=== PATIENT | female | born 1995 | race Caucasian/White ===

== ENCOUNTER 2023-02-22 11:09 | Observation (INO) ==
--- NOTE | 2023-02-22 11:41 | ED Triage Note ---
Date of Service February 22, 2023 History of Present Illness This patient was briefly evaluated while in triage. An abbreviated physical exam was performed. This patient is a 28-year-old Female who presents to the ED for evaluation of fluttering in the chest since 1 AM. The patient reports that when she stood up, she got lightheaded. She went to her PCPs office this morning, and had an ECG showing atrial fibrillation. Patient does report some pain in the back of her right calf. PCP is Dr. Webster Physical Exam CONSTITUTIONAL: Healthy and well nourished. Patient does not appear in any acute distress. HEENT: No sclericterus or conjunctival injection NECK: Full active range of motion without discomfort. No JVD or carotid bruits RESPIRATORY: Clear to auscultation bilaterally with no wheezing, crackles, rhonchi or stridor. CARDIOVASCULAR: Irregular rhythm with no murmurs, rubs or gallops. GASTROINTESTINAL: Bowel sounds present in all quadrants. INTEGUMENTARY: No rash or other significant dermatologic conditions noted. HEMATOLOGIC: No ecchymosis or petechiae. PSYCHIATRIC: Positive affect. NEUROLOGIC: No focal neurologic deficits noted. Initial orders for labs and / or imaging were placed and patient was placed in the waiting area until a bed is available. Please see further documentation for the full ED course.
[2023-02-22] MEDS ORDERED: SODIUM CHLORIDE 0.9% 1000ML 1,000 ML IV STA (11:42)
--- NOTE | 2023-02-22 12:57 | XRay Report ---
XR chest 1V not portable CLINICAL HISTORY: Chest pain, nonspecific TECHNIQUE: Single frontal radiograph of the chest was obtained. Comparison: None available at the time of this dictation. FINDINGS: No lines and tubes are seen. The cardiomediastinal silhouette is normal. The lungs are clear. No evid ence of pleural effusion or pneumothorax. IMPRESSION: No acute chest disease. ACT 112: Negative or not required by law. Electronically signed by: Roland Milian M.D. 02/22/2023 12:56 PM
[2023-02-22 13:01] LABS: Basophils # (auto) 0.05 K/uL (0-0.2); Basophils % (auto) 0.7 %; Eosinophils # (auto) 0.11 K/uL (0-0.50); Eosinophils % (auto) 1.5 %; Hematocrit (blood only) 42.3 % (37.0-47.0); Hemoglobin 14.3 g/dl (12.0-16.0); Immature Granulocytes # (auto) 0.02 K/uL (0.01-0.20); Immature Granulocytes % (auto) 0.3 %; Lymphocytes # (auto) 1.84 K/uL (1.2-3.4); Lymphocytes % (auto) 24.9 %; Mean Corpuscular Hemoglobin 32.1 pg (25.0-34.0); Mean Corpuscular Hgb Conc 33.8 g/dL (32.0-36.0); Mean Corpuscular Volume 94.8 fL (80.0-100.0); Monocytes # (auto) 0.62 K/uL (0.11-0.59); Monocytes % (auto) 8.4 %; Neutrophils # (auto) 4.74 K/uL (1.40-6.50); Neutrophils % (auto) 64.2 %; Platelet Count 308 K/uL (130-400); RDW Coefficient of Variation 12.2 % (11.5-14.5); RDW Standard Deviation 42.7 fL (36.4-46.3); Red Blood Count 4.46 M/uL (4.20-5.40); White Blood Count 7.38 K/ul (4.8-10.8)
[2023-02-22] MEDS ORDERED: SODIUM CHLORIDE 0.9% 1000ML 1,000 ML IV ONE (14:29)
--- NOTE | 2023-02-22 14:33 | Emergency Department Note ---
Impression & Plan A-fib, Shortness of breath ED Provider Note NAME: ASAEL HA AGE: 28 SEX: F : 1995 ARRIVES VIA: Walk-In INFORMANT: Patient ED PROVIDER(S): Edgardo Earl DO CHIEF COMPLAINT: shortness of breath HPI: Patient is a 28-year-old female who presents to the ER for palpitations and shortness of breath with exertion. Symptoms started this morning some around 1 to 2 AM. She notes she can feel her heart fluttering. Last night she did have 2 margaritas. Denies any headache or change in vision. She is short of breath with any Movement. Denies any belly pain, nausea, vomiting, or diarrhea. She does have some intermittent right calf pain. No dysuria, urgency, or frequency. No other exacerbating or remitting factors. PAST MEDICAL HISTORY:See Below PAST SURGICAL HISTORY:See Below FAMILY HISTORY:See Below SOCIAL HISTORY:See Below HOME MEDICATIONS:See Below ALLERGIES:See Below VITALS:See Below PHYSICAL EXAMINATION: GENERAL: Sitting up in bed, alert, well appearing, well nourished, no distress, non-toxic EYE EXAM: normal conjunctiva. OROPHARYNX: no exudate, no erythema, lips, buccal mucosa, and tongue normal and mucous membranes are moist NECK: supple, no nuchal rigidity, no adenopathy, non-tender LUNGS: Clear to auscultation. Normal chest wall mechanics HEART: no murmurs, S1 normal and S2 normal ABDOMEN: abdomen soft, non-tender, normo-active bowel sounds, no masses, no rebo und or guarding. UPPER EXTREMITIES: upper extremities are grossly normal. LOWER EXTREMITIES: No pitting edema. Calves are equal bilateral NEURO EXAM: Normal sensorium, cranial nerves II-XII grossly intact, normal speech, no gross weakness of arms, no gross weakness of legs. MEDICAL DECISION MAKING: Patient is a 28-year-old female who was referred in by PCP for irregular heartbeat. She notes she has been short of breath and feeling palpitations her heart since around 1 to 2 AM this morning. IV was established blood work was obtained. Labs show no significant leukocytosis or anemia. BMP was remarkable for slightly elevated chloride. INR was unremarkable. LFTs bilirubin was unremarkable. Troponin was negative. COVID was negative. Chest x-ray was clean. EKG consistent with A-fib although rate controlled. She was given IV fluids. She did have 2 drinks last night. Question if this could be the cause of her symptoms. Ultrasound the right lower extremity was negative. She was updated bedside and admitted for further work-up. Did discuss with the hospitalist as well as case repairer. Triage Nursing notes reviewed. Limited review of prior medical records performed Vital Signs: reviewed and remarkable for tachycardia Differential diagnosis: Cardiac ischemia, aortic dissection, pulmonary embolism, pneumothorax, pneumonia, pericarditis, myocarditis, esophageal rupture, GERD, cholecystitis, pancreatitis, musculoskeletal, as well as other pathologies. ER treatment provided: See below Diagnostics interpreted by me include EKG and cardiac monitoring as listed below: -Cardiac Monitoring: An order was placed for continuous cardiac monitoring. The monitor shows a rate of 101 with AFIB rhythm. -ECG: A-fib rate of 103 Normal axis No PVCs QTc 413 -Laboratory studies:Interpreted by me as stated above in MDM and shown below. Imaging studies: Xrays: As interpreted by me: Portable AP upright 1 view of the chest shows no focal infiltrate CTs show: none Duplex of the right lower extremity showed no DVT Consultation(s): As described in MDM Procedures:none Critical Care: None Past Med/Surg History Medical History (Updated 02/22/23 @ 19:31 by Edgardo Earl DO) IBS (irritable bowel syndrome) Surgical History History of colonoscopy History of esophagogastroduodenoscopy (EGD) History of tooth extraction wisdom teeth S/P ASA/PRK (advanced surface ablation photorefractive keratectomy) 2016 bilt eyes Family History Father Colorectal cancer Grandmother (Maternal) Colorectal cancer Mother No problems noted. Denies family history of Ovarian cancer Prostate cancer Myocardial infarction Breast cancer Uterine cancer Social History Smoking Status: Never smoker Second Hand Exposure: No; Do You Dip or Chew Tobacco: No; Tobacco Cessation Education Requested by Patient: No Hx Alcohol Use: Yes Alcohol type: beer, wine and hard liquor Hx Substance Use: No Preferred Language: German Communication Ability: Effective Visual Impairment: No Limitations Hearing Ability: Normal Labor/Excavator Required: No Beliefs That Will Affect Care: None Current Living Situation: Alone current occupational status: employed Other Information That Helps Us Care for You: No Feels Safe at Home: Yes Safety Concerns: Feels Safe At This Time Childhood Exposure to Second-Hand Smoke: No caffeine: Yes Dental Care, Regularly: Yes Physical Activity Frequency: 5-6 Times per Week Seatbelt Use: always Sunscreen Use: Yes Assistive Devices: None Allergies Allergies Allergy/AdvReac Type Severity Reaction Status Date / Time No Known Allergies Allergy Verified 02/22/23 10:28 Home Meds Home Medications Medication Instructions Recorded Confirmed ibuprofen 200 mg tablet 200 mg PO Q6H PRN Pain 02/21/22 02/22/23 betamethasone dipropionate 0.05 % 1 applic topical BID PRN .. 02/22/23 02/22/23 topical cream clobetasol 0.05 % topical ointment 1 applic topical DIRECTED 02/22/23 02/22/23 Previous Rx's Medication Instructions Recorded etonogestrel 0.12 mg-ethinyl See Rx Instructions .Route 01/29/23 estradiol 0.015 mg/24 hr vaginal .COMPLEX ##1 ring (EluRyng) Results & Data (ED) Vital Signs Vital Signs - 24 hr 02/22/23 11:37 02/22/23 14:20 02/22/23 14:20 Temperature 36.3 C L Temperature Source Temporal Artery Scan Pulse Rate 80 Pulse Rate [Apical] 82 Respiratory Rate 18 16 Respiratory Effort / Characteristics Non-Labored Spontaneous Respiratory Depth Normal Respiratory Pattern Regular Blood Pressure 106/61 Blood Pressure [Left Arm] 108/70 Blood Pressure Mean 76 Blood Pressure Mean [Left Arm] 82 Blood Pressure Position Sitting Pulse Oximetry 100 100 99 Oxygen Delivery Method Room Air Sepsis Recent Fever Within 48 Hours No Sepsis New/Unexplained Change in Mental Status No Sepsis Action Taken by Nursing No Action Required 02/22/23 14:32 02/22/23 14:54 Temperature Temperature Source Pulse Rate 85 Pulse Rate [Apical] 91 H Respiratory Rate 18 Respiratory Effort / Characteristics Non-Labored Spontaneous Respiratory Depth Normal Respiratory Pattern Blood Pressure Blood Pressure [Left Arm] 127/73 Blood Pressure Mean Blood Pressure Mean [Left Arm] 91 Blood Pressure Position Pulse Oximetry 100 Oxygen Delivery Method Room Air Sepsis Recent Fever Within 48 Hours Sepsis New/Unexplained Change in Mental Status Sepsis Action Taken by Nursing Laboratory Data 02/22/23 12:50 02/22/23 14:14 Lab Results 02/22/23 02/22/23 02/22/23 Range/Units 12:50 12:50 12:50 WBC 7.38 (4.8-10.8) K/ul RBC 4.46 (4.20-5.40) M/uL Hgb 14.3 (12.0-16.0) g/dl Hct 42.3 (37.0-47.0) % MCV 94.8 (80.0-100.0) fL MCH 32.1 (25.0-34.0) pg MCHC 33.8 (32.0-36.0) g/dL RDW Std Deviation 42.7 (36.4-46.3) fL RDW Coeff of Atul 12.2 (11.5-14.5) % Plt Count 308 (130-400) K/uL MPV 10.0 (9.4-12.4) fL Immature Gran % (Auto) 0.3 % Neut % (Auto) 64.2 % Lymph % (Auto) 24.9 % [place] % (Auto) 8.4 % Eos % (Auto) 1.5 % Baso % (Auto) 0.7 % Neut # (Auto) 4.74 (1.40-6.50) K/uL Lymph # (Auto) 1.84 (1.2-3.4) K/uL [place] # (Auto) 0.62 H (0.11-0.59) K/uL Eos # (Auto) 0.11 (0-0.50) K/uL Baso # (Auto) 0.05 (0-0.2) K/uL Immature Gran # (Auto) 0.02 (0.01-0.20) K/uL PT Cancelled INR Cancelled APTT Cancelled PTT Ratio Cancelled Sodium Cancelled Potassium Cancelled Chloride Cancelled Carbon Dioxide Cancelled Anion Gap Cancelled BUN Cancelled Creatinine Cancelled Est Cr Clr Drug Dosing Cancelled Est GFR ( Amer) Cancelled Est GFR (Non-Af Amer) Cancelled BUN/Creatinine Ratio Cancelled Glucose Cancelled Calcium Cancelled Magnesium (1.7-2.4) mg/dl Total Bilirubin Cancelled AST Cancelled ALT Cancelled Alkaline Phosphatase Cancelled Troponin I High Sens Cancelled Total Protein Cancelled Albumin Cancelled Globulin Cancelled Albumin/Globulin Ratio Cancelled TSH SARS-CoV-2, RNA, NAAT (NEGATIVE) 02/22/23 02/22/23 02/22/23 Range/Units 12:50 14:14 14:14 WBC (4.8-10.8) K/ul RBC (4.20-5.40) M/uL Hgb (12.0-16.0) g/dl Hct (37.0-47.0) % MCV (80.0-100.0) fL MCH (25.0-34.0) pg MCHC (32.0-36.0) g/dL RDW Std Deviation (36.4-46.3) fL RDW Coeff of Atul (11.5-14.5) % Plt Count (130-400) K/uL MPV (9.4-12.4) fL Immature Gran % (Auto) % Neut % (Auto) % Lymph % (Auto) % [place] % (Auto) % Eos % (Auto) % Baso % (Auto) % Neut # (Auto) (1.40-6.50) K/uL Lymph # (Auto) (1.2-3.4) K/uL [place] # (Auto) (0.11-0.59) K/uL Eos # (Auto) (0-0.50) K/uL Baso # (Auto) (0-0.2) K/uL Immature Gran # (Auto) (0.01-0.20) K/uL PT 10.8 INR 1.0 APTT 28.1 PTT Ratio 1.0 Sodium Potassium Chloride Carbon Dioxide Anion Gap BUN Creatinine Est Cr Clr Drug Dosing Est GFR ( Amer) Est GFR (Non-Af Amer) BUN/Creatinine Ratio Glucose Calcium Magnesium (1.7-2.4) mg/dl Total Bilirubin AST ALT Alkaline Phosphatase Troponin I High Sens Total Protein Albumin Globulin Albumin/Globulin Ratio TSH Cancelled 0.791 SARS-CoV-2, RNA, NAAT (NEGATIVE) 02/22/23 02/22/23 02/22/23 Range/Units 14:14 14:14 14:41 WBC (4.8-10.8) K/ul RBC (4.20-5.40) M/uL Hgb (12.0-16.0) g/dl Hct (37.0-47.0) % MCV (80.0-100.0) fL MCH (25.0-34.0) pg MCHC (32.0-36.0) g/dL RDW Std Deviation (36.4-46.3) fL RDW Coeff of Atul (11.5-14.5) % Plt Count (130-400) K/uL MPV (9.4-12.4) fL Immature Gran % (Auto) % Neut % (Auto) % Lymph % (Auto) % [place] % (Auto) % Eos % (Auto) % Baso % (Auto) % Neut # (Auto) (1.40-6.50) K/uL Lymph # (Auto) (1.2-3.4) K/uL [place] # (Auto) (0.11-0.59) K/uL Eos # (Auto) (0-0.50) K/uL Baso # (Auto) (0-0.2) K/uL Immature Gran # (Auto) (0.01-0.20) K/uL PT INR APTT PTT Ratio Sodium 139 Potassium 3.9 Chloride 108 H Carbon Dioxide 23 Anion Gap 8 BUN 17 Creatinine 0.91 Est Cr Clr Drug Dosing 113.3 Est GFR ( Amer) 98.1 Est GFR (Non-Af Amer) 84.7 BUN/Creatinine Ratio 18.7 Glucose 91 Calcium 8.9 Magnesium 1.9 (1.7-2.4) mg/dl Total Bilirubin 0.5 AST 17 ALT 11 Alkaline Phosphatase 31 L Troponin I High Sens 5.0 Total Protein 7.0 Albumin 3.9 Globulin 3.1 Albumin/Globulin Ratio 1.3 TSH SARS-CoV-2, RNA, NAAT NEGATIVE (NEGATIVE) Administered Medications Lactated Ringer's (Lr) 1,000 mls @ 125 mls/hr IV .Q8H NIR Stop: 03/24/23 15:44 Last Admin: 02/22/23 15:50 Dose: 125 mls/hr Documented By: CGK Acetaminophen (Ofirmev) 1,000 mg in 100 mls @ 400 mls/hr IV Q8H PRN PRN Reason: pain/fever Stop: 02/25/23 15:58 Last Infusion: 02/22/23 18:12 Dose: 0 mls/hr Documented By: Admin: 02/22/23 16:08 Dose: 400 mls/hr Documented By: DARIANA Heparin Sodium/Dextrose (Heparin Sodium/Dextrose) 25,000 units in 500 mls @ 19 mls/hr IV .Q24H NIR; Protocol Stop: 03/24/23 17:28 Last Titration: 02/22/23 19:06 Dose: 950 units/hr, 19 mls/hr Documented By: JERONIMO Co-signed By: GENEVA Admin: 02/22/23 18:00 Dose: 950 units/hr, 19 mls/hr Documented By: JERONIMO Co-signed By: SUSHIL Discontinued Medications Heparin Sodium (Porcine) (Heparin Sod (Porcine) 1000 Unit/Ml) 4,000 units IV NOW ONE Stop: 02/22/23 17:30 Last Admin: 02/22/23 18:00 Dose: 4,000 units Documented By: JERONIMO Co-signed By: SUSHIL Sodium Chloride (Nss 1000ml) 1,000 mls @ 999 mls/hr IV .Q1H1M STA Stop: 02/22/23 12:42 Last Infusion: 02/22/23 15:17 Dose: 0 mls/hr Documented By: Admin: 02/22/23 14:15 Dose: 999 mls/hr Documented By: RANDEE Sodium Chloride (Nss 1000ml) 1,000 mls @ 999 mls/hr IV .Q1H1M ONE Stop: 02/22/23 15:29 Last Infusion: 02/22/23 16:01 Dose: 0 mls/hr Documented By: Admin: 02/22/23 14:40 Dose: 999 mls/hr Documented By: HERON Metoprolol Tartrate (Metoprolol Tartrate 25 Mg Tab) 12.5 mg PO ONE ONE Stop: 02/22/23 15:46 Last Admin: 02/22/23 15:44 Dose: 12.5 mg Documented By: YUEK Imaging Data Radiologist's Impression: Chest X-Ray 02/22/23 11:42 XR chest 1V not portable CLINICAL HISTORY: Chest pain, nonspecific TECHNIQUE: Single frontal radiograph of the chest was obtained. Comparison: None available at the time of this dictation. FINDINGS: No lines and tubes are seen. The cardiomediastinal silhouette is normal. The brett gs are clear. No evidence of pleural effusion or pneumothorax. IMPRESSION: No acute chest disease. ACT 112: Negative or not required by law. Electronically signed by: Roland Milian M.D. 02/22/2023 12:56 PM Venous Doppler Study 02/22/23 14:29 RIGHT LOWER EXTREMITY VENOUS DOPPLER HISTORY: Right popliteal pain. COMPARISON STUDY: None. FINDINGS: There is normal compressibility, flow, and augmentation within the right lower extremity deep venous system. IMPRESSION: No DVT within the right lower extremity ACT 112: Negative or not required by law. Electronically signed by: Roe Huang M.D. 02/22/2023 3:59 PM Discharge Plan Visit Data Chief Complaint: Abnormal Labs/Diagnostic Testing Stated Complaint: ABNORMAL EKG ED Provider: Edgardo Earl Discharge Problem: A-fib, Shortness of breath Patient Disposition: Admitted As Inpatient Discharge Instructions Interventions: ED Discharge Assessment Last Done: 02/22/23 16:57
--- NOTE | 2023-02-22 14:47 | History & Physical Report ---
Date of Service February 22, 2023 Assessment & Plan (1) New onset a-fib: Plan: New onset A-fib No personal or family history of A-fib. No family history of [place]. Woke up with A-fib and feelings of palpitations overnight and is easily fatigued with exertion A-fib rates fluctuating [id number] while in ER A-fib onset after having 34 margaritas the night prior. Patient reports she normally drinks 2 to 3 days/week with 2-3 drinks in the setting. No history of withdrawal Potassium 3.9, magnesium pending High-sensitivity troponin 5.0, symptoms have been present for 12 hours by time of assessment No history of TRE, patient feels rested in the morning if she sleeps for 8 hours Metoprolol 12.5 mg tartrate twice daily started, 1 dose given in ER Echo pending [id number] 1, sx <24 hours no baseline EKG. High likelihood of spontaneous conversion overnight. We will keep n.p.o. with temporary heparinization in case cardioversion is required. Patient is fairly symptomatic with any exertion even with moderately elevated rates ~110-120s, would favor cardioversion prior to discharge if needed due to this. acute onset of symptoms approximately 14 hours ago, overall risk of thromboembolism is low. If patient spontaneously converts defer heparinization/DOAC unless indicated by DVT results and can be discharged. (2) Right leg pain: Plan: Right leg discomfort behind the knee. No calf asymmetry. PT pulses intact and symmetrical Right leg ultrasound pending No history of DVT/PE. No family history of DVT/PE. Does use NuvaRing and had a 2.5-hour car ride yesterday (3) H/O hormonal contraceptive: Plan: As noted Plan Disposition: Medical telemetry for A-fib new onset CODE STATUS: Full code Diet: Heart healthy History of Present Illness Primary Care Provider: DO Ellie Ayalaie is a 28-year-old female with a past medical history of IBS who presents for evaluation of atrial fibrillation. Patient was seen by her PCP this morning for palpitations/fluttering which started middle of the night and awoken her from sleep. She has been lightheaded and feeling like she was going to pass out with ambulation. She reports that attempted exercise such as going up stairs makes her feel very fatigued and like she was running disproportionately. Reportedly had 2 margaritas last night prior to onset of symptoms. Initial EKG in the ER A-fib with a rate of 103, no ischemic changes, QTc 413. Has right calf pain. Uses nuvaring, no other hormonal treatment, no history of blood clots. 2am heart fluttering in her chest. Woke up and went to get up was very lightheaded every time she tried to stand up and walk. Easily out of breath like running a marathon just walking. No syncope. Saw PCP on [place] [facility], was in Afib and directed to the ER. No chest pain or pressure, +palpitations No history of afib or palpitations No focal weakness, does have pain in R calf and behind her R kneecap which began just today. No leg swelling Yesterday was in the car for 2.[address] back from [facility], also sits for her job- is a [employer]al. Fhx: no history of heart attacks, DVT/PE, blood clots, DM, strokes. Parents are still alive, no medical problems No personal history of blood clots. No FHx of blood clots No tobacco product use. Alcohol: Drinks socially 2-3 days per week usually 2-3 in a sitting. Did drink alochol las tnight, 3-4 margaritis in tumbles while playing pool. ~6 shots of alochol total in the drinks. No Hx of withdrawal sx, several EtoH free consequentive days in previous weeks. Medical History: Reviewed Medications: Reviewed. Nuvaring, no other meds. Ibuprofen use while on period, no other OTC med use. Surgical History: Reviewed Family history: Reviewed Allergies: Reviewed Social History: NO tobacco, etoh as noted above, no medical marijuana or recreational drug use. Code Status: Full code Allergies Allergy/AdvReac Type Severity Reaction Status Date / Time No Known Allergies Allergy Verified 02/22/23 10:28 Home Medications Medication Instructions Recorded Confirmed Type ibuprofen 200 mg tablet 200 mg PO Q6H PRN Pain 02/21/22 02/22/23 History clobetasol 0.05 % topical ointment 1 applic topical BID #60 grams 11/06/22 02/22/23 Rx etonogestrel 0.12 mg-ethinyl See Rx Instructions .Route 03/06/23 03/30/23 Rx estradiol 0.015 mg/24 hr vaginal .COMPLEX ##1 ring (EluRyng) betamethasone dipropionate 0.05 % 1 applic topical BID PRN 02/22/23 History topical cream Past Med/Surg History Medical History (Updated 02/22/23 @ 15:13 by Rad Walden MD) IBS (irritable bowel syndrome) Surgical History History of colonoscopy History of esophagogastroduodenoscopy (EGD) History of tooth extraction wisdom teeth S/P ASA/PRK (advanced surface ablation photorefractive keratectomy) 2016 bilt eyes Family History Father Colorectal cancer Grandmother (Maternal) Colorectal cancer Mother No problems noted. Denies family history of Ovarian cancer Prostate cancer Myocardial infarction Breast cancer Uterine cancer Social History Smoking Status: Never smoker Second Hand Exposure: No; Hx Alcohol Use: Yes (social) Alcohol type: beer, wine and hard liquor Hx Substance Use: No Preferred Language: Arabic Communication Ability: Effective Visual Impairment: No Limitations Hearing Ability: Normal Residential Roofer Helper Required: No Beliefs That Will Affect Care: None Current Living Situation: Alone current occupational status: employed Feels Safe at Home: Yes Childhood Exposure to Second-Hand Smoke: No caffeine: Yes Dental Care, Regularly: Yes Physical Activity Frequency: 5-6 Times per Week Seatbelt Use: always Sunscreen Use: Yes Assistive Devices: None Review of Systems Review of Systems: All systems reviewed & are unremarkable except as noted in HPI & below Physical Exam Physical Exam: General: A&Ox3. NAD. Cooperative. HEENT: Atraumatic, normocephalic. Vision/hearing grossly intact. Pupils equal and reactive to light. EOM intact Pulm: CTAB A&P. -wheezes, -rales, -rhonchi. Symmetrical chest rise. No increased work of breathing. No respiratory distress. Cardiac: Irregularly irregular, tachycardic fluctuating 80-115 bpm, -mrg. Radial pulses intact and symmetrical. Abdominal: Nontender, nondistended, soft. BS present. Extremities: Warm, dry. Calf circumference equal. Sensation of soft touch intact in hands and feet bilaterally. Recovery Rn strength, ankle dorsiflexion/plantarflexion 5/5 tenderness to right posterior fossa palpation. Results & Data Results & Data Vital Signs (Past 12 Hours) Vital Signs Temp Pulse Pulse Resp BP BP Pulse Ox 02/22/23 14:32 85 02/22/23 14:20 99 02/22/23 14:20 82 16 108/70 100 02/22/23 11:37 36.3 C L 80 18 106/61 100 O2 Del Method 02/22/23 14:32 02/22/23 14:20 02/22/23 14:20 02/22/23 11:37 Room Air PG Care Time/CCT Total # of Minutes Spent Total Time Spent with Patient: Total time spent is greater than 50% in coordination of care (as documented) at patient's floor/unit and/or counseling patient: Coding Level of Care Code 96444 INT INP/OBS CARE 3/75MIN Diagnoses New onset a-fib I48.91 Right leg pain M79.604 H/O hormonal contraceptive Z92.0
[2023-02-22 14:58] LABS: Partial Thromboplastin Time 28.1 Seconds (21.0-31.0); Prothrombin Time 10.8 Seconds (9.0-12.0)
[2023-02-22 15:01] LABS: Albumin Level 3.9 gm/dl (3.4-5.0); Bilirubin,Total 0.5 mg/dl (0.2-1.0); Calcium 8.9 mg/dl (8.6-10.3); Potassium 3.9 mmol/L (3.5-5.1)
[2023-02-22 15:07] LABS: Albumin Globulin Ratio 1.3 (0.9-2); BUN Creatinine Ratio 18.7 (10-20); Creatinine Clr Calc Pharmacy 113.3 ml/min; Est GFR (African American) 98.1 ml/min; Est GFR (Non-African American) 84.7 ml/min; Globulin 3.1 gm/dl (2.5-4.0)
[2023-02-22] MEDS ORDERED: METOPROLOL TARTRATE 25 MG TAB PO ONE (15:45)
[2023-02-22] MEDS: LACTATED RINGER'S 1,000 ML IV SCH ×2 (15:50→23:48)
[2023-02-22] MEDS ORDERED: ACETAMINOPHEN 1,000 MG/100 ML VIAL IV PRN (15:59)
--- NOTE | 2023-02-22 16:00 | Ultrasound Report ---
RIGHT LOWER EXTREMITY VENOUS DOPPLER HISTORY: Right popliteal pain. COMPARISON STUDY: None. FINDINGS: There is normal compressibility, flow, and augmentation within the right lower extremity de ep venous system. IMPRESSION: No DVT within the right lower extremity ACT 112: Negative or not required by law. Electronically signed by: Roe Huang M.D. 02/22/2023 3:59 PM
[2023-02-22] MEDS ORDERED: METOPROLOL TARTRATE 1 MG/ML VIAL IV PRN (17:29)
[2023-02-22] MEDS ORDERED: Heparin IV Adult Wt-Based Low-Dose WITH Bolus Protocol IV STA (17:29)
[2023-02-22] MEDS ORDERED: HEPARIN SODIUM/DEXTROSE 25,000 UNITS/500 ML BAG IV SCH (17:29)
[2023-02-22] MEDS ORDERED: HEPARIN SOD (PORCINE) 1000 UNIT/ML IV ONE (17:29)
[2023-02-22] MEDS: METOPROLOL TARTRATE 25 MG TAB PO SCH (21:25)
[2023-02-23 01:42] LABS: Partial Thromboplastin Ratio 1.9
[2023-02-23 01:44] LABS: Partial Thromboplastin Time 51.5 Seconds (21.0-31.0)
[2023-02-23] MEDS: ACETAMINOPHEN 325 MG TAB PO PRN ×2 (03:44→10:30)
--- NOTE | 2023-02-23 06:14 | Electrocardiogram Report ---
Test Reason : Blood Pressure : / mmHG Vent. Rate : 103 BPM Atrial Rate : 136 BPM P-R Int : 000 ms QRS Dur : 072 ms QT Int : 316 ms P-R-T Axes : 000 074 -09 degrees QTc Int : 413 ms Poor data quality, interpretation may be adversely affected Atrial fibrillation with rapid ventricular response Nonspecific T wave abnormality Abnormal ECG No previous ECGs available Confirmed by Matthew Colon ([id number]) on 02/23/2023 6:14:03 AM Referred By: Confirmed By:Matthew Colon
[2023-02-23 07:22] LABS: Basophils # (auto) 0.04 K/uL (0-0.2); Basophils % (auto) 1.2 %; Eosinophils % (auto) 2.9 %; Hematocrit (blood only) 35.6 % (37.0-47.0); Immature Granulocytes # (auto) 0.01 K/uL (0.01-0.20); Immature Granulocytes % (auto) 0.3 %; Lymphocytes # (auto) 1.66 K/uL (1.2-3.4); Lymphocytes % (auto) 48.3 %; Mean Corpuscular Hemoglobin 31.9 pg (25.0-34.0); Mean Corpuscular Hgb Conc 33.7 g/dL (32.0-36.0); Mean Corpuscular Volume 94.7 fL (80.0-100.0); Mean Platelet Volume 9.7 fL (9.4-12.4); Monocytes # (auto) 0.29 K/uL (0.11-0.59); Monocytes % (auto) 8.4 %; Neutrophils # (auto) 1.34 K/uL (1.40-6.50); Neutrophils % (auto) 38.9 %; Platelet Count 219 K/uL (130-400); RDW Coefficient of Variation 11.9 % (11.5-14.5); RDW Standard Deviation 41.8 fL (36.4-46.3); Red Blood Count 3.76 M/uL (4.20-5.40); White Blood Count 3.44 K/ul (4.8-10.8)
[2023-02-23 07:43] LABS: BUN Creatinine Ratio 11.8 (10-20); Calcium 8.4 mg/dl (8.6-10.3); Creatinine Clr Calc Pharmacy 115.9 ml/min; Est GFR (African American) 95.6 ml/min; Est GFR (Non-African American) 82.5 ml/min; Magnesium 1.8 mg/dl (1.7-2.4)
[2023-02-23] MEDS: METOPROLOL TARTRATE 25 MG TAB PO SCH (08:07)
--- NOTE | 2023-02-23 08:52 | Hospitalist Progress Note ---
Date of Service February 23, 2023 Assessment & Plan (1) New onset a-fib: Plan: New onset A-fib, acute converted to nsr No personal or family history of A-fib. No family history of MD. Woke up with palpitations overnight and is easily fatigued with exertion A-fib rates fluctuating 84419 while in ER High-sensitivity troponin normal, tsh normal, magnesium normal Metoprolol 12.5 mg tartrate twice daily started, 1 dose given in ER Echo pending [id number] 1, sx <24 hours no baseline EKG. High likelihood of spontaneous conversion overnight. We will keep n.p.o. with temporary heparinization in case cardioversion is required. Patient is fairly symptomatic (2) Right leg pain: Plan: Right leg discomfort behind the knee. No calf asymmetry. PT pulses intact and symmetrical Right leg ultrasound negative for DVT (3) H/O hormonal contraceptive: Plan: As noted Plan Disposition: Medical telemetry for A-fib new onset CODE STATUS: Full code Diet: Heart healthy Admission and Anticipated Discharge Date Admission Date: February 22, 2023 Results & Data Results & Data Vital Signs (Past 12 Hours) Vital Signs Temp Pulse Pulse Resp BP Pulse Ox O2 Del Method 02/23/23 08:16 98.1 F 84 17 112/73 97 Room Air 02/23/23 03:17 97.7 F 74 16 122/74 97 Room Air 02/22/23 23:15 86 02/22/23 23:35 97.7 F 73 16 97/57 L 96 Room Air 02/22/23 21:25 102 H 100/67 PG Care Time/CCT Total # of Minutes Spent Total Time Spent with Patient: Total time spent is greater than 50% in coordination of care (as documented) at patient's floor/unit and/or counseling patient: Coding Diagnoses New onset a-fib I48.91 Right leg pain M79.604 H/O hormonal contraceptive Z92.0
[2023-02-23] MEDS: LACTATED RINGER'S 1,000 ML IV SCH (10:51)
--- NOTE | 2023-02-23 13:11 | XCELERA ---
[id number] [email or web address]\[id number]
--- NOTE | 2023-02-23 14:45 | Electrocardiogram Report ---
Test Reason : Blood Pressure : / mmHG Vent. Rate : 072 BPM Atrial Rate : 072 BPM P-R Int : 130 ms QRS Dur : 078 ms QT Int : 410 ms P-R-T Axes : 040 071 000 degrees QTc Int : 448 ms Normal sinus rhythm Normal ECG When compared with ECG of 22-FEB-2023 12:48, Sinus rhythm has replaced Atrial fibrillation Confirmed by Kevyn Elliott ([id number]) on 02/23/2023 2:44:57 PM Referred By: Tang Pisano Confirmed By:Kevyn Elliott
--- NOTE | 2023-02-23 18:14 | Discharge Summary ---
Date of Service February 23, 2023 Admission HPI Per Admitting Provider Carri is a 28-year-old female with a past medical history of IBS who presents for evaluation of atrial fibrillation. Patient was seen by her PCP this morning for palpitations/fluttering which started middle of the night and awoken her from sleep. She has been lightheaded and feeling like she was going to pass out with ambulation. She reports that attempted exercise such as going up stairs makes her feel very fatigued and like she was running disproportionately. Reportedly had 2 margaritas last night prior to onset of symptoms. Initial EKG in the ER A-fib with a rate of 103, no ischemic changes, QTc 413. Has right calf pain. Uses nuvaring, no other hormonal treatment, no history of blood clots. 2am heart fluttering in her chest. Woke up and went to get up was very lightheaded every time she tried to stand up and walk. Easily out of breath like running a marathon just walking. No syncope. Saw PCP on [facility], was in Afib and directed to the ER. No chest pain or pressure, +palpitations No history of afib or palpitations No focal weakness, does have pain in R calf and behind her R kneecap which began just today. No leg swelling Yesterday was in the car for 2.[address] back from [facility], also sits for her job- is a [employer]. Fhx: no history of heart attacks, DVT/PE, blood clots, DM, strokes. Parents are still alive, no medical problems No personal history of blood clots. No FHx of blood clots No tobacco product use. Alcohol: Drinks socially 2-3 days per week usually 2-3 in a sitting. Did drink alochol las tnight, 3-4 margaritis in tumbles while playing pool. ~6 shots of alochol total in the drinks. No Hx of withdrawal sx, several EtoH free consequentive days in previous weeks. Medical History: Reviewed Medications: Reviewed. Nuvaring, no other meds. Ibuprofen use while on period, no other OTC med use. Surgical History: Reviewed Family history: Reviewed Allergies: Reviewed Social History: NO tobacco, etoh as noted above, no medical marijuana or recr eational drug use. Code Status: Full code Principal Diagnosis Atrial fibrillation resolved Normal echocardiogram normal thyroid Discharge Exam Awake alert and appropriate no complaints or symptoms Cardiac exam is regular without murmurs clicks rubs or gallops Lungs are clear without wheezes or crackles Discharge Data Allergies Allergy/AdvReac Type Severity Reaction Status Date / Time No Known Allergies Allergy Verified 02/22/23 10:28 Consultations 02/22/23 14:51 ED Decision to Admit Stat Ordered Studies 02/22/23 14:29 US venous doppler LE RT Stat Hospital Course (1) New onset a-fib: New onset A-fib, acute converted to nsr No personal or family history of A-fib. No family history of ID. Woke up with palpitations overnight and is easily fatigued with exertion A-fib rates fluctuating 10686 while in ER normal sinus is been not higher than 100 High-sensitivity troponin normal, tsh normal, magnesium normal Metoprolol 12.5 mg tartrate twice daily started, 1 dose given in ER Echo normal [id number] 1, sx <24 hours no baseline EKG. spontaneous conversion overnight. (2) Right leg pain: Right leg discomfort behind the knee. No calf asymmetry. PT pulses intact and symmetrical Right leg ultrasound negative for DVT (3) H/O hormonal contraceptive: As noted Plan Disposition: Medical telemetry for A-fib new onset CODE STATUS: Full code Diet: Heart healthy Total Time Total Time Spent Total Time Spent (In Minutes): Discharge 30 including conversation with cardiology regarding echocardiogram results Discharge Plan Discharge Items Patient Disposition: Home - Self-Care Reason For Visit: NEW ONSET AFIB Discharge Diagnosis: atrial fibrillation resolved to normal sinus Activity: Resume your previous activity Non-emergency contact: Primary Care Provider Call non-emergency contact if: your symptoms worsen Follow-up/Referrals: Tang Pisano, [Primary Care Provider] - Diet: Regular Addtl Attending Provider Instructions: please rest and recover please get good rest and keep hydrated avoid alcohol and caffeine/energy drinks your cardiac testing is normal after your heart converted to normal rhythm follow up with you primary care in february Pending Studies at Discharge: No Stand-Alone Forms: [employer], Smoking Cessation Medications and DC Order Prescriptions: Continued etonogestrel-ethinyl estradiol [EluRyng] 0.12-0.015 mg/24 hr ring See Rx Instructions .ROUTE .COMPLEX Qty: 1 1RF Dose Instruction: 1 RING, INSERT VAGINALLY WEAR FOR THREE WEEKS, THEN REMOVE FOR ONE RING-FREE WEEK. Rx Instructions: 1 RING, INSERT VAGINALLY WEAR FOR THREE WEEKS, THEN REMOVE FOR ONE RING-FREE WEEK. betamethasone dipropionate 0.05 % cream 1 applic topical BID PRN (Reason: ..) Rx Instructions: Apply to areas of the trunk and extremities twice daily x 2 weeks as directed. ibuprofen 200 mg Tablet 200 mg PO Q6H PRN (Reason: Pain) clobetasol 0.05 % ointment 1 applic topical DIRECTED Discharge Orders: Discharge Order (Routine); Ordered 02/23/23 Ordered By: Chris Sims Admission Data Admit Date/Time: 02/22/23 15:32 Attending Provider: Chris Sims Admit Provider: Rad Walden Primary Care Provider: Tang Pisano Other Providers: Rad Walden Other Interventions: Discharge Summary Assessment (RN) Last Done: 02/23/23 14:00 Coding Level of Care Code 26645 INP/OBS DISCH >30 MIN Diagnoses New onset a-fib I48.91 Right leg pain M79.604 H/O hormonal contraceptive Z92.0
== END 2023-02-23 14:23 | disposition home or self-care (01) ==
LOC: 2S 11:09 → ED 11:09 → SUATTDRO 15:32 → 2S 16:57